=== PATIENT | female | born 1990 | race Two or more races ===

== ENCOUNTER 2024-10-01 21:09 | Emergency (ER) | payer OTHER ==
[~2024-10-01] VITALS: Ht 165.1 cm; Wt 52.6 kg
[2024-10-01] MEDS ORDERED: 0.9 % SODIUM CHLORIDE 1,000 ML IV STA (22:46)
[2024-10-01 23:34] LABS: BASO % 0.3 % (0.1-1.2); EOS # 0.00 (0.04-0.54); EOS % 0.0 % (0.7-7.0); LYMPH # 0.67 (1.18-3.74); LYMPH % 19.6 % (19.3-53.1); MEAN PLATELET VOLUME 9.80 fl (9.4-12.4); MONO # 0.26 (0.24-0.82); MONO % 7.6 % (4.7-12.5); NEUT # 2.45 (1.56-6.13); NEUT % 71.6 % (34.0-71.1); RED CELL DISTRIBUTION WIDTH 12.3 % (11.6-14.4)
[2024-10-01 23:37] LABS: URINE APPEARANCE Clear; URINE BILIRRUBIN Negative (NEGATIVE); URINE BLOOD Negative; URINE COLOR Dark Yellow; URINE GLUCOSE Negative (NEGATIVE); URINE KETONE Trace (NEGATIVE); URINE LEUKOCYTE Trace; URINE NITRATE Negative; URINE PROTEIN 30 (NEGATIVE); URINE UROBILINOGEN 1.0 E.U./dl
[2024-10-01 23:41] LABS: URINE BACTERIA 116.3 uL (0.0-1933); URINE EPITHELIAL CELLS 31.2 uL (0.0-38.8); URINE RBC 4.2 uL (0.0-20.8); URINE WBC 22.3 uL (0.0-23.2)
[2024-10-01 23:41] LABS: COVID-19 AG NEGATIVE (NEGATIVE)
[2024-10-01 23:55] LABS: BUN CREA RATIO 9.0 (7.0-25.0); CREATININE SERUM 0.95 mg/dL (0.55-1.02); GFR 68.61; GLUCOSE FASTING 89.0 mg/dL (65-100); OSMOLALITY SERUM 265.0 MOSM/KG (275-295)
[2024-10-02 00:10] LABS: URINE CAST 0.00 uL (0.0-1.40)
== END 2024-10-02 01:07 | disposition home or self-care (01) ==
LOC: ER 21:09
PROVIDERS: Emergency Medicine
DX: B34.9 Viral infection, unspecified (principal); Z20.822 Contact with and (suspected) exposure to COVID-19